=== PATIENT | female | born 1940 | race Caucasian/White ===

== ENCOUNTER → 2017-09-29 | Outpatient (CLI) | payer MEDICARE, OTHER | END | disposition home or self-care (01) | LOC: LAB SHORT 10:05 → LAB 10:05 | PROVIDERS: Nurse Practitioner Women's Health | DX: Z12.72 Encounter for screening for malignant neoplasm of vagina (principal); Z91.89 Other specified personal risk factors, not elsewhere classified | CPT/HCPCS: 87624; G0123 ==

== ENCOUNTER 2018-04-08 19:51 | Emergency (ER) | payer MEDICARE, OTHER ==
[~2018-04-08] VITALS: Ht 160 cm; Wt 68.0 kg
[2018-04-08 20:44] LABS: BASOPHILS ABSOLUTE AUTO 0.06 K/mm3 (0.00-0.23); BASOPHILS PERCENT AUTO 1 % (0-2); EOSINOPHILS ABSOLUTE AUTO 0.22 K/mm3 (0.00-0.68); EOSINOPHILS PERCENT AUTO 3 % (0-6); Hematocrit 35.1 % (33.0-51.0); Hemoglobin 11.7 g/dL (11.5-16.0); IMMATURE GRAN ABSOLUTE AUTO 0.02 K/mm3 (0.00-0.10); IMMATURE GRAN PERCENT AUTO 0 % (0-1); LYMPHOCYTES ABSOLUTE AUTO 2.28 K/mm3 (0.84-5.20); LYMPHOCYTES PERCENT AUTO 35 % (21-46); MONOCYTES ABSOLUTE AUTO 0.56 K/mm3 (0.16-1.47); MONOCYTES PERCENT AUTO 9 % (4-13); Mean Corpuscular HGB 30.4 pg (26.0-34.0); Mean Corpuscular HGB Conc 33.3 g/dL (31.5-36.5); Mean Corpuscular Volume 91 fL (80-100); Mean Platelet Volume 11.1 fL (9.1-12.4); NEUTROPHILS ABSOLUTE AUTO 3.37 K/mm3 (1.96-9.15); NEUTROPHILS PERCENT AUTO 52 % (41-73); Platelet Count 174 K/mm3 (150-400); RDW Coefficient Variation 12.9 % (11.7-14.2); RDW Standard Deviation 42.8 fL (35.1-46.3); Red Blood Cell Count 3.85 M/mm3 (3.80-5.20); White Blood Cell Count 6.51 K/mm3 (4.00-11.30)
[2018-04-08] MEDS ORDERED: OXYB5 PO (20:58)
[2018-04-08] MEDS ORDERED: Simvastatin20 MG PO (20:58)
[2018-04-08] MEDS ORDERED: LEVSOD50 PO (20:58)
[2018-04-08] MEDS ORDERED: LOSA25 PO (20:59)
[2018-04-08] MEDS ORDERED: METO50ER PO (20:59)
[2018-04-08] MEDS ORDERED: Metformin HCl500 MG PO (20:59)
[2018-04-08] MEDS ORDERED: ALEN70 PO (20:59)
[2018-04-08 21:08] LABS: Alanine Aminotransfer (ALT/SGP 19 U/L (12-78); Albumin, Blood 3.6 g/dL (3.4-5.0); Albumin/Globulin Ratio 1.1 (0.8-1.8); Alk Phos 64 U/L (50-136); Anion Gap 8 mmol/L (6-16); Aspartate Aminotrans (AST/SGOT 21 U/L (12-37); Bilirubin, Total 0.6 mg/dL (0.1-1.0); Blood Urea Nitrogen 17 mg/dL (8-24); Bun/Creatinine Ratio 20.8 (12.0-20.0); CO2, Blood 25 mmol/L (21-32); Calcium, Blood 8.8 mg/dL (8.5-10.1); Chloride, Blood 100 mmol/L (98-108); Creatinine, Blood 0.82 mg/dL (0.40-1.00); Globulin, Blood 3.2 g/dL (2.2-4.0); Glomerular Filtration Rate >60 (60-); Glucose, Blood 90 mg/dL (70-99); Potassium, Blood 3.8 mmol/L (3.5-5.5); Sodium, Blood 133 mmol/L (136-145); Total Protein, Blood 6.8 g/dL (6.4-8.2); Troponin I <0.015 ng/mL (0.000-0.040)
[2018-04-08] MEDS ORDERED: Protonix40 MG PO (21:09)
== END 2018-04-08 21:51 | disposition home or self-care (01) ==
LOC: ER 19:51
PROVIDERS: Emergency Medicine
DX: K21.9 Gastro-esophageal reflux disease without esophagitis (principal); E11.9 Type 2 diabetes mellitus without complications; I10 Essential (primary) hypertension
CPT/HCPCS: 71046; 80053; 84484; 85025; 93005; 93010; 99285-25

== ENCOUNTER → 2018-12-06 | Outpatient (CLI) | payer MEDICARE, OTHER ==
[~2018-12-06] MED LIST: ALEN70 PO; LEVSOD50 PO; LOSA25 PO; METO50ER PO; Metformin HCl500 MG PO; OXYB5 PO; Protonix40 MG PO; Simvastatin20 MG PO
[2018-12-10 14:06] LABS: HPV 16 Negative (Negative); HPV 18 Negative (Negative); HPV OTHER HR TYPES Negative (Negative)
== END | disposition home or self-care (01) ==
LOC: LAB 18:58 → LAB SHORT 18:58
PROVIDERS: Nurse Practitioner Women's Health
DX: Z12.72 Encounter for screening for malignant neoplasm of vagina (principal); Z91.89 Other specified personal risk factors, not elsewhere classified
CPT/HCPCS: 87624; G0123

== ENCOUNTER 2020-04-13 19:13 | Emergency (ER) | payer MEDICARE, OTHER ==
[~2020-04-13] VITALS: Ht 160 cm; Wt 68.0 kg
[~2020-04-13 19:13] MED LIST changes: +ACETAMINOPHEN500 MG PO; -LEVSOD50 PO; +LEVSOD75 PO
[2020-04-13 19:55] LABS: BASOPHILS ABSOLUTE AUTO 0.06 K/mm3 (0.00-0.23); BASOPHILS PERCENT AUTO 1 % (0-2); EOSINOPHILS ABSOLUTE AUTO 0.29 K/mm3 (0.00-0.68); EOSINOPHILS PERCENT AUTO 4 % (0-6); Hematocrit 42.4 % (33.0-51.0); Hemoglobin 13.7 g/dL (11.5-16.0); IMMATURE GRAN ABSOLUTE AUTO 0.03 K/mm3 (0.00-0.10); IMMATURE GRAN PERCENT AUTO 0 % (0-1); LYMPHOCYTES PERCENT AUTO 30 % (21-46); MONOCYTES ABSOLUTE AUTO 0.45 K/mm3 (0.16-1.47); MONOCYTES PERCENT AUTO 6 % (4-13); Mean Corpuscular HGB 28.8 pg (26.0-34.0); Mean Corpuscular HGB Conc 32.3 g/dL (31.5-36.5); Mean Corpuscular Volume 89 fL (80-100); Mean Platelet Volume 11.7 fL (9.1-12.4); NEUTROPHILS ABSOLUTE AUTO 4.17 K/mm3 (1.96-9.15); NEUTROPHILS PERCENT AUTO 59 % (41-73); Platelet Count 180 K/mm3 (150-400); RDW Coefficient Variation 12.7 % (11.7-14.2); RDW Standard Deviation 41.9 fL (35.1-46.3); Red Blood Cell Count 4.75 M/mm3 (3.80-5.20)
[2020-04-13 20:18] LABS: Alanine Aminotransfer (ALT/SGP 18 U/L (12-78); Albumin, Blood 3.8 g/dL (3.4-5.0); Alk Phos 99 U/L (50-136); Anion Gap 5 mmol/L (6-16); Aspartate Aminotrans (AST/SGOT 13 U/L (12-37); Bilirubin, Total 0.7 mg/dL (0.1-1.0); Blood Urea Nitrogen 18 mg/dL (8-24); Bun/Creatinine Ratio 30.4 (12.0-20.0); CO2, Blood 26 mmol/L (21-32); Calcium, Blood 9.3 mg/dL (8.5-10.1); Chloride, Blood 102 mmol/L (98-108); Creatinine, Blood 0.59 mg/dL (0.40-1.00); Globulin, Blood 3.8 g/dL (2.2-4.0); Glomerular Filtration Rate >60 (60-); Glucose, Blood 322 mg/dL (70-99); Potassium, Blood 3.8 mmol/L (3.5-5.5); Sodium, Blood 133 mmol/L (136-145); Total Protein, Blood 7.6 g/dL (6.4-8.2); Troponin I <0.015 ng/mL (0.000-0.040)
[2020-04-13 21:19] LABS: Source, Urine Clean Catch
[2020-04-13 21:22] LABS: Appearance, Urine Clear (Clear); Bilirubin, Urine Neg (Neg); Blood, Urine Neg (Neg); Color, Urine Yellow (P-Yellow); Glucose Qualitative, Urine 4+ (Neg); Ketones, Urine Neg (Neg); Leukocyte Esterase, Urine 2+ (Neg); Nitrite, Urine Neg (Neg); Protein, Urine Neg (Neg); Urobilinogen, Urine NORM (Normal)
[2020-04-13 21:28] LABS: Bacteria Few /hpf; Squamous Epithelial Cells Few /hpf (Few)
[2020-04-13] MEDS ORDERED: MECL12.5 PO (23:17)
== END 2020-04-13 23:49 | disposition home or self-care (01) ==
LOC: ER 19:13
PROVIDERS: Physician Assistant
DX: R42 Dizziness and giddiness (principal); I10 Essential (primary) hypertension; E11.9 Type 2 diabetes mellitus without complications; K21.9 Gastro-esophageal reflux disease without esophagitis; Z79.84 Long term (current) use of oral hypoglycemic drugs; Z79.899 Other long term (current) drug therapy
CPT/HCPCS: 36415; 80053; 81001; 84484; 85025; 87086; 93005; 93010; 99284-25

== ENCOUNTER 2022-02-03 11:11 | Day surgery (SDC) | payer MEDICARE ==
[~2022-02-03] VITALS: Ht 162.6 cm; Wt 66.6 kg
[~2022-02-03 11:11] MED LIST changes: +MECL12.5 PO
[2022-02-03] MEDS ORDERED: EUTHYROX75 MC1 (11:55)
== END 2022-02-03 14:00 | disposition home or self-care (01) ==
LOC: ORSCSDS 11:11
PROVIDERS: Internal Medicine Gastroenterology
PROC: 0DB78ZX Excision of Stomach, Pylorus, Via Natural or Artificial Opening Endoscopic, Diagnostic (ICD-10-PCS; principal; 2022-02-03 12:30)
PROC: 0D758ZZ Dilation of Esophagus, Via Natural or Artificial Opening Endoscopic (ICD-10-PCS; principal; 2022-02-03 12:30)
DX: R13.10 Dysphagia, unspecified (principal); K31.7 Polyp of stomach and duodenum; K22.5 Diverticulum of esophagus, acquired; Z79.84 Long term (current) use of oral hypoglycemic drugs; Z79.899 Other long term (current) drug therapy; E11.9 Type 2 diabetes mellitus without complications; E78.5 Hyperlipidemia, unspecified; I10 Essential (primary) hypertension; E03.9 Hypothyroidism, unspecified
CPT/HCPCS: 82947; 88305; 88342; J2704; J7120

== ENCOUNTER → 2023-02-14 | Outpatient (CLI) | payer MEDICARE ==
[~2023-02-14] MED LIST changes: +EUTHYROX75 MC1
== END | disposition home or self-care (01) ==
LOC: LAB 18:25 → LAB SHORT 18:25
DX: R30.0 Dysuria (principal)
CPT/HCPCS: 87086

== ENCOUNTER 2023-12-16 14:00 | Inpatient (IN) | payer MEDICARE ==
[~2023-12-16] VITALS: Ht 162.6 cm; Wt 70.9 kg
[~2023-12-16 14:00] MED LIST changes: -EUTHYROX75 MC1; +EUTHYROX75 MC1 PO; -LOSA25 PO; +LOSARTAN POTAS100 M1 PO; +SIMV40 PO; -Simvastatin20 MG PO
[2023-12-16 15:53] LABS: BASOPHILS ABSOLUTE AUTO 0.04 K/mm3 (0.00-0.23); BASOPHILS PERCENT AUTO 0 % (0-2); EOSINOPHILS ABSOLUTE AUTO 0.01 K/mm3 (0.00-0.68); EOSINOPHILS PERCENT AUTO 0 % (0-6); Hematocrit 38.2 % (33.0-51.0); Hemoglobin 12.7 g/dL (11.5-16.0); IMMATURE GRAN ABSOLUTE AUTO 0.08 K/mm3 (0.00-0.10); IMMATURE GRAN PERCENT AUTO 1 % (0-1); LYMPHOCYTES ABSOLUTE AUTO 0.52 K/mm3 (0.84-5.20); LYMPHOCYTES PERCENT AUTO 4 % (21-46); MONOCYTES ABSOLUTE AUTO 0.61 K/mm3 (0.16-1.47); MONOCYTES PERCENT AUTO 5 % (4-13); Mean Corpuscular HGB 29.7 pg (26.0-34.0); Mean Corpuscular HGB Conc 33.2 g/dL (31.5-36.5); Mean Corpuscular Volume 89 fL (80-100); NEUTROPHILS ABSOLUTE AUTO 11.58 K/mm3 (1.96-9.15); NEUTROPHILS PERCENT AUTO 90 % (41-73); Platelet Count 142 K/mm3 (150-400); RDW Coefficient Variation 12.8 % (11.7-14.2); RDW Standard Deviation 41.9 fL (35.1-46.3); Red Blood Cell Count 4.28 M/mm3 (3.80-5.20); White Blood Cell Count 12.84 K/mm3 (4.00-11.30)
[2023-12-16 16:03] LABS: Base Excess Venous 0.9 mmol/L; Bicarbonate Venous 24.5 mmol/L (24.0-30.0); PCO2 Venous 45.7 mmHg (38-42); pH Blood Venous 7.37 (7.34-7.37)
[2023-12-16 16:17] LABS: Albumin, Blood 3.3 g/dL (3.4-5.0); Bilirubin, Total 1.2 mg/dL (0.1-1.0); Bun/Creatinine Ratio 25.9 (12.0-20.0); Calcium, Blood 8.3 mg/dL (8.5-10.1); Creatinine, Blood 0.62 mg/dL (0.40-1.00); Globulin, Blood 3.3 g/dL (2.2-4.0); Potassium, Blood 4.1 mmol/L (3.5-5.5); Total Protein, Blood 6.6 g/dL (6.4-8.2)
[2023-12-16 16:32] LABS: Influenza A, PCR NEGATIVE (NEGATIVE); Influenza B, PCR NEGATIVE (NEGATIVE); Resp Syncytial Virus, PCR NEGATIVE (NEGATIVE); SARS-Cov-2 (COVID-19) PCR, MMC NEGATIVE (NEGATIVE)
[2023-12-16] MEDS ORDERED: Magnesium Sulf 2 GM/Water 50ML 50 ML IV ONE (16:45)
[2023-12-16] MEDS ORDERED: Ondansetron HCl 2 MG / ML 2ML Vial IV PRN (17:35)
[2023-12-16] MEDS ORDERED: FLU VACC TS2024-25(6MOS UP)/PF 45 MCG/0.5 ML SYRINGE IM SCH (17:35)
[2023-12-16] MEDS ORDERED: FentaNYL Citrate 50 MCG/ML 2 ML Injection IV PRN (17:35)
[2023-12-16] MEDS ORDERED: NS 1,000 ML IV SCH (17:35)
[2023-12-16] MEDS ORDERED: MetroNIDAZOLE 500MG/NS 100 ml 100 ML IV ONE (17:45)
[2023-12-16] MEDS ORDERED: CefTRIAXone Sodium 1,000 MG in NS 50 ML IV ONE (17:45)
[2023-12-16] MEDS ORDERED: FentaNYL Citrate 50 MCG/ML 2 ML Injection IV ONE (17:50)
[2023-12-16] MEDS ORDERED: Ondansetron HCl 2 MG / ML 2ML Vial IV ONE (17:50)
[2023-12-16] MEDS ORDERED: Enoxaparin 40 MG/0.4 ML SYR SC SCH (18:00)
[2023-12-16 18:03] LABS: CHOL/HDL RATIO 4.6; Cholesterol 194 mg/dL (50-200); HDL Cholesterol 42 mg/dL (>39); LDL/HDL RATIO 2.4; Low Density Lipoprotein Chol 103 mg/dL (0-110); Triglycerides 247 mg/dL (30-160); Very Low Density Lipoprot Chol 49 mg/dL (6-32)
[2023-12-16] MEDS ORDERED: NS 1,000 ML IV ONE (18:06)
[2023-12-16 21:30] VITALS: BP 136/72
[2023-12-17 02:27] VITALS: BP 149/86
--- NOTE | 2023-12-17 03:33 | NUR ---
[facility]YGEN THERAPY PT ON CONTINUOUS PULSE OXIMETRY R/T NARCOTIC ANALGESICS. DESAT TO 85% RA WHILE ASLEEP AT 0000. REQUIRED 4L LFNC TO STABILIZE ABOVE 90% SPO2. WEANED TO RA AT 0230.
--- NOTE | 2023-12-17 04:17 | NUR ---
SHIFT SUMMARY A&OX4, INTERMITTENT BOUTS OF CONFUSION DURING THE NIGHT. PT COOPERATIVE, EASILY/QUICKLY REORIENTED. PAIN MANAGED WITH NPIS AND PER EMAR. NPO STATUS. IVF PER EMAR. CONTINUOUS PULSE OXIMETRY R/T NARCOTICS PER EMAR. REQUIRING INTERMITTENT LFNC WITH SLEEP D/T DESATS. PT ABLE TO REST DURING SHIFT. PT VOICED UNDERSTANDING OF PLAN OF CARE; DENIES QUESTIONS/CONCERNS AT THIS TIME.
--- NOTE | 2023-12-17 04:20 | NUR ---
OXYGEN THERAPY CONTINUED PT DESAT TO 88% SPO2 WHILE ASLEEP AT 0415. LFNC REAPPLIED AT 2LPM. ALONSO WILKINS
[2023-12-17 04:55] LABS: BASOPHILS ABSOLUTE AUTO 0.03 K/mm3 (0.00-0.23); BASOPHILS PERCENT AUTO 0 % (0-2); EOSINOPHILS ABSOLUTE AUTO 0.02 K/mm3 (0.00-0.68); EOSINOPHILS PERCENT AUTO 0 % (0-6); Hematocrit 36.4 % (33.0-51.0); Hemoglobin 12.3 g/dL (11.5-16.0); IMMATURE GRAN ABSOLUTE AUTO 0.06 K/mm3 (0.00-0.10); IMMATURE GRAN PERCENT AUTO 1 % (0-1); LYMPHOCYTES ABSOLUTE AUTO 1.27 K/mm3 (0.84-5.20); LYMPHOCYTES PERCENT AUTO 10 % (21-46); MONOCYTES ABSOLUTE AUTO 0.62 K/mm3 (0.16-1.47); MONOCYTES PERCENT AUTO 5 % (4-13); Mean Corpuscular HGB 29.9 pg (26.0-34.0); Mean Corpuscular HGB Conc 33.8 g/dL (31.5-36.5); Mean Corpuscular Volume 89 fL (80-100); Mean Platelet Volume 12.3 fL (9.1-12.4); NEUTROPHILS ABSOLUTE AUTO 10.38 K/mm3 (1.96-9.15); NEUTROPHILS PERCENT AUTO 84 % (41-73); Platelet Count 138 K/mm3 (150-400); RDW Coefficient Variation 12.9 % (11.7-14.2); RDW Standard Deviation 41.9 fL (35.1-46.3); Red Blood Cell Count 4.11 M/mm3 (3.80-5.20); White Blood Cell Count 12.38 K/mm3 (4.00-11.30)
[2023-12-17 05:09] LABS: Albumin, Blood 2.8 g/dL (3.4-5.0); Albumin/Globulin Ratio 0.9 (0.8-1.8); Bun/Creatinine Ratio 21.5 (12.0-20.0); Calcium, Blood 8.5 mg/dL (8.5-10.1); Creatinine, Blood 0.61 mg/dL (0.40-1.00); Globulin, Blood 3.2 g/dL (2.2-4.0); Potassium, Blood 4.2 mmol/L (3.5-5.5)
--- NOTE | 2023-12-17 06:08 | NUR ---
OXYGEN THERAPY RA SINCE 529 TO CURRENT. ALONSO WELL. SPO2 94% WHILE ASLEEP ON RA.
[2023-12-17 07:15] VITALS: BP 131/60
--- NOTE | 2023-12-17 09:30 | NUR ---
DR. PATHAK ROUNDED THIS AM. DISCUSSED CONTINUED NEED FOR IV FLUIDS AND ELEVATED WHITE COUNT WITH DR. PATHAK.
--- NOTE | 2023-12-17 11:53 | NUR ---
PT'S DAUGHTER LUCIANO UPDATED REGARDING PT STATUS. PT GAVE VERBAL CONSENT FOR THIS RN TO TALK WITH HR DAUGHTER.
[2023-12-17] MEDS ORDERED: NS 1,000 ML IV SCH (11:55)
[2023-12-17] MEDS ORDERED: Benzonatate 100 MG Cap PO PRN (14:45)
[2023-12-17 15:00] VITALS: BP 131/62
[2023-12-17] MEDS ORDERED: Celexa20 MG PO (16:20)
[2023-12-17] MEDS ORDERED: HYDCHL25 PO (16:20)
[2023-12-17] MEDS ORDERED: JENTADUETO PO (16:21)
--- NOTE | 2023-12-17 18:29 | NUR ---
SHIFT SUMMARY PT ORIENTED TO SELF AND PLACE ONLY, CANNOT CONSISTENTLY RECALL CURRENT DATE OR DATE OF . CONTINUOUS PULSE OX. NC AT 2.5 LPM WHEN ON IV PAIN MEDS. COOPERATIVE WITH CARE. TO BSC X1. PT ABLE TO REST THIS AM, VISITORS IN AFTERNOON. NPO STATUS. USES ORAL SPONGE SWABS AND GLYCERIN SWABS NEEDED. C/O COUGH INTERMITTENTLY, ASSIGNED RN OBTAINED ORDER FOR BENZONATATE. PT RESTING AT THIS TIME.
[2023-12-17 19:19] VITALS: BP 150/66
--- NOTE | 2023-12-17 20:07 | NUR ---
SHIFT SUMMARY PT REMAINS NPO AND ON IV FLUIDS FOR PANCRATITIS MANAGEMENT. PT'S PAIN HAS BEEN MANAGED WITH FENTALY AND NAUSEA MANAGED WITH ZOFRAN. PT HAS BEEN ALERT/ORIENTED X2 THIS SHIFT, BED ALARM IN PLACE FOR SAFETY. PT IS A 1 ASSIST WHEN OOB. PT PLACED ON 2L O2 INTERMITTENTLY T/O THE DAY TO KEEP O2 SATURATIONS GREATER THAN 90%. INCENTIVE SPIROMETER GIVEN AND EDUCATION PROVIDED. BEDSIDE REPORT GIVENT TO SARAH LAWS.
[2023-12-17] MEDS ORDERED: Memantine HCL 5 MG Tab PO SCH (21:00)
[2023-12-17] MEDS ORDERED: Atorvastatin 10 MG Tab PO SCH (21:00)
[2023-12-18 03:25] VITALS: BP 174/80
--- NOTE | 2023-12-18 04:19 | NUR ---
SHIFT SUMMARY PT IS PLEASANTLY CONFUSED, DOES TRY TO GET OOB ON HER OWN AND FORGETS TO CALL. IV FLUIDS GIVEN ORDERED. PT VOIDING APPROPRIATELY, SBA TO BSC. 02 SATS >92% ON 2LNC. PAIN MANAGED W/ IV PAIN MEDS. BED ALARM ON, CALL LIGHT IN REACH.
[2023-12-18] MEDS ORDERED: Levothyroxine Sodium 0.075 MG Tab PO SCH (06:00)
[2023-12-18 06:49] LABS: BASOPHILS ABSOLUTE AUTO 0.03 K/mm3 (0.00-0.23); BASOPHILS PERCENT AUTO 0 % (0-2); EOSINOPHILS PERCENT AUTO 1 % (0-6); Hematocrit 33.3 % (33.0-51.0); Hemoglobin 11.1 g/dL (11.5-16.0); IMMATURE GRAN ABSOLUTE AUTO 0.05 K/mm3 (0.00-0.10); IMMATURE GRAN PERCENT AUTO 1 % (0-1); LYMPHOCYTES ABSOLUTE AUTO 1.45 K/mm3 (0.84-5.20); LYMPHOCYTES PERCENT AUTO 13 % (21-46); MONOCYTES ABSOLUTE AUTO 0.57 K/mm3 (0.16-1.47); MONOCYTES PERCENT AUTO 5 % (4-13); Mean Corpuscular HGB 29.9 pg (26.0-34.0); Mean Corpuscular HGB Conc 33.3 g/dL (31.5-36.5); Mean Corpuscular Volume 90 fL (80-100); Mean Platelet Volume 11.9 fL (9.1-12.4); NEUTROPHILS ABSOLUTE AUTO 8.67 K/mm3 (1.96-9.15); NEUTROPHILS PERCENT AUTO 80 % (41-73); Platelet Count 129 K/mm3 (150-400); RDW Coefficient Variation 13.1 % (11.7-14.2); RDW Standard Deviation 42.9 fL (35.1-46.3); Red Blood Cell Count 3.71 M/mm3 (3.80-5.20); White Blood Cell Count 10.87 K/mm3 (4.00-11.30)
[2023-12-18 07:01] VITALS: BP 161/83
[2023-12-18 07:07] LABS: Bun/Creatinine Ratio 14.4 (12.0-20.0); Calcium, Blood 8.7 mg/dL (8.5-10.1); Creatinine, Blood 0.56 mg/dL (0.40-1.00); Potassium, Blood 3.8 mmol/L (3.5-5.5)
[2023-12-18] MEDS ORDERED: oxyBUTYnin chloride 5 MG TAB PO SCH (09:00)
[2023-12-18] MEDS ORDERED: Metoprolol Succinate 50 MG TABCR PO SCH (09:00)
[2023-12-18] MEDS ORDERED: Polyethylene Glycol 3350 17 gm PO PRN (11:50)
[2023-12-18] MEDS ORDERED: Docusate Sodium/Senna 1 Tab PO PRN (11:50)
[2023-12-18 14:11] VITALS: BP 144/75
[2023-12-18] MEDS ORDERED: Insulin Human Lispro 100 Units/ML 3ML Syringe SC SCH (18:11)
--- NOTE | 2023-12-18 18:43 | NUR ---
End of shift note. Pt has rested for much of the day. Pt is A&Ox2, some noted confusion and frustration. Pt refused most of her AM medications. Staff was able to encourage Pt to take home BP meds but that was all she was willing to take. Pt has been cooperative with all other cares. Pt has tolerated clears, increased to full liquids this evening. Pt has remained on room air all shift. Family was updated this afternoon. Pt is able to make needs known, call light is within reach.
[2023-12-18] MEDS ORDERED: Pantoprazole Sodium 40 MG Injection IV SCH (19:00)
[2023-12-18 19:14] VITALS: BP 147/73
[2023-12-19] VITALS (9 sets, daily range): BP systolic 157–179; BP diastolic 66–88
--- NOTE | 2023-12-19 03:58 | NUR ---
SHIFT SUMMARY PT RESTED MOST OF SHIFT. MEDICATED FOR PAIN W/ IV PAIN MEDS. VSS. CONT BIOX ON, O2 SATS >92% ON RA. SBA TO BSC. CALLING INTERMITTENTLY, BED ALARM ON. TELE IN PLACE, NO CARDIAC EVENTS THIS SHIFT.
[2023-12-19 05:15] LABS: BASOPHILS ABSOLUTE AUTO 0.03 K/mm3 (0.00-0.23); BASOPHILS PERCENT AUTO 0 % (0-2); EOSINOPHILS ABSOLUTE AUTO 0.19 K/mm3 (0.00-0.68); EOSINOPHILS PERCENT AUTO 2 % (0-6); Hematocrit 32.4 % (33.0-51.0); Hemoglobin 10.7 g/dL (11.5-16.0); IMMATURE GRAN ABSOLUTE AUTO 0.06 K/mm3 (0.00-0.10); IMMATURE GRAN PERCENT AUTO 1 % (0-1); LYMPHOCYTES ABSOLUTE AUTO 1.42 K/mm3 (0.84-5.20); LYMPHOCYTES PERCENT AUTO 16 % (21-46); MONOCYTES ABSOLUTE AUTO 0.58 K/mm3 (0.16-1.47); MONOCYTES PERCENT AUTO 7 % (4-13); Mean Corpuscular HGB 29.8 pg (26.0-34.0); Mean Corpuscular Volume 90 fL (80-100); Mean Platelet Volume 12.1 fL (9.1-12.4); NEUTROPHILS ABSOLUTE AUTO 6.53 K/mm3 (1.96-9.15); NEUTROPHILS PERCENT AUTO 74 % (41-73); Platelet Count 132 K/mm3 (150-400); RDW Standard Deviation 42.9 fL (35.1-46.3); Red Blood Cell Count 3.59 M/mm3 (3.80-5.20); White Blood Cell Count 8.81 K/mm3 (4.00-11.30)
[2023-12-19 06:09] LABS: Albumin, Blood 2.5 g/dL (3.4-5.0); Albumin/Globulin Ratio 0.7 (0.8-1.8); Bilirubin, Total 1.2 mg/dL (0.1-1.0); Bun/Creatinine Ratio 8.6 (12.0-20.0); Calcium, Blood 8.5 mg/dL (8.5-10.1); Creatinine, Blood 0.58 mg/dL (0.40-1.00); Globulin, Blood 3.4 g/dL (2.2-4.0); Potassium, Blood 3.6 mmol/L (3.5-5.5); Total Protein, Blood 5.9 g/dL (6.4-8.2)
[2023-12-19] MEDS ORDERED: OxyCODONE HCL 5 MG TAB PO PRN (11:10)
[2023-12-19] MEDS ORDERED: Docusate Sodium/Senna 1 Tab PO PRN (11:15)
[2023-12-19] MEDS ORDERED: Polyethylene Glycol 3350 17 gm PO PRN (11:15)
[2023-12-19] MEDS ORDERED: Lactulose 20 GM/30 ML UDC PO SCH (12:00)
[2023-12-19] MEDS ORDERED: Magnesium Oxide 400 MG Tab PO SCH (12:00)
--- NOTE | 2023-12-19 16:01 | NUR ---
PT BP 169/[address] SAMUELS NOTIFIED OF VS AND HOME MEDS. PER MD, WILL PLACE ORDER FOR BP.
[2023-12-19] MEDS ORDERED: HydrALAZINE HCl 20 MG / ML 1ML Vial IV PRN (16:05)
[2023-12-19] MEDS ORDERED: Pantoprazole Sodium 40 MG Tab PO SCH (16:30)
[2023-12-19] MEDS ORDERED: HydroCHLOROthiazide 25 mg Tab PO SCH (17:00)
[2023-12-19] MEDS ORDERED: Losartan Potassium 50 MG Tab PO SCH (17:00)
--- NOTE | 2023-12-19 17:37 | NUR ---
SHIFT SUMMARY- NO ACUTE CHANGES THIS SHIFT. PT ASKED FOR PAIN MEDICATION AT THE BEGINNING OF THE SHIFT BUT HAS NOT REQUIRED ANY THROUGHOUT SHIFT. DIET ADVANCED TO SOFT BITE SIZE PER MD REQUEST, TOLORATED LUNCH, CURRENTLY SITTING UP EATING DINNER. NO BM THIS SHIFT. BOWEL REGIMEN IN PLACE. PT/OT WENT WELL TODAY. PT IS ALERT AND ORIENTED X2-3, UNABLE TO STATED OR CURRENT DATE, OBEYS COMMANDS. HOME BLOOD PRESSURE MEDICATIONS RESTARTED THIS AFTERNOON. R/A PRODUCTIVE COUGH.
--- NOTE | 2023-12-19 18:38 | NUR ---
RECHECK BP 174/74 HR 65. PER ROBIN LOPEZ TO GIVE IV HYDRALAZINE 2 HR AFTER LOSARTAN AND HCTZ, WILL PASS ON TO NOC SHIFT.
[2023-12-20] MEDS ORDERED: Melatonin 5 MG Tablet PO SCH (00:20)
[2023-12-20 03:40] VITALS: BP 166/69
--- NOTE | 2023-12-20 06:12 | NUR ---
SHIFT SUMMARY PT HAS RESTED OFF AND ON T/O THE NIGHT. PT VERY FORGETFUL, DOES NOT USE CALL LIGHT. PT REPORTS DIFFICULTY SLEEPING THIS SHIFT, ORDER FOR MELATONIN RECEIVED. MEDICATED FOR PAIN PRN PER EMAR. PT CONT/INCONT OF URINE. ONE BOWEL MOVEMENT THIS SHIFT AFTER RECEIVING HS LACTULOSE. PLAN OF CARE REMAINS UNCHANGED. BED IN LOWEST POSITION, CALL LIGHT WITHIN REACH.
[2023-12-20 08:21] VITALS: BP 143/73
[2023-12-20] MEDS ORDERED: MetFORMIN HCl 500 mg PO SCH (12:00)
[2023-12-20] MEDS ORDERED: AmLODIPine Besylate 5 MG Tab PO ONE (13:05)
[2023-12-20] MEDS ORDERED: ACET500 PO (13:34)
[2023-12-20] MEDS ORDERED: DOCUZEN 8.6-501 EACH PO (13:36)
[2023-12-20] MEDS ORDERED: PANT40 PO (13:36)
[2023-12-20] MEDS ORDERED: POLYETHYLENE G500 G1 PO (13:37)
[2023-12-20] MEDS ORDERED: MAGNESIUM OXID500 MG PO (13:37)
[2023-12-20] MEDS ORDERED: AMLO5 PO (13:38)
[2023-12-20 13:53] VITALS: BP 120/66
[2023-12-20 15:19] VITALS: BP 148/95
[2023-12-20 15:32] VITALS: BP 156/66
== END 2023-12-20 15:57 | disposition home health service (06) | DRG 438 ==
LOC: ER 14:00 → ERHOLD 14:01 → SURS 14:01
PROVIDERS: Emergency Medicine; Internal Medicine; Student in an Organized Health Care Education/Training Program; ADMIT Internal Medicine
DX: K85.90 Acute pancreatitis without necrosis or infection, unspecified (principal); K83.1 Obstruction of bile duct; F03.A3 Unspecified dementia, mild, with mood disturbance; I10 Essential (primary) hypertension; E03.9 Hypothyroidism, unspecified; F41.8 Other specified anxiety disorders; E78.5 Hyperlipidemia, unspecified; E11.9 Type 2 diabetes mellitus without complications; M48.00 Spinal stenosis, site unspecified; R74.01 Elevation of levels of liver transaminase levels; E83.42 Hypomagnesemia; D69.6 Thrombocytopenia, unspecified; K21.9 Gastro-esophageal reflux disease without esophagitis; K52.9 Noninfective gastroenteritis and colitis, unspecified; Z79.899 Other long term (current) drug therapy; Z79.84 Long term (current) use of oral hypoglycemic drugs; Z79.890 Hormone replacement therapy
CPT/HCPCS: 0241U; 36415; 71046; 74177; 76705; 80048; 80053; 80061; 82803; 82947; 83690; 83735; 83880; 84484; 85025; 93005; 93010; 96374-59; 97116; 97162; 97165; 97530; 97535; 99285-25; A9270; J0360; J0696; J1650; J2405; J2470; J3010; J3475; J7030; Q9967

== ENCOUNTER 2024-07-05 05:06 | Day surgery (SDC) | payer MEDICARE ==
[~2024-07-05 05:06] MED LIST changes: +ACET500 PO; +AMLO5 PO; +Celexa20 MG PO; +DOCUZEN 8.6-501 EACH PO; +HYDCHL25 PO; +JENTADUETO PO; +MAGNESIUM OXID500 MG PO; +PANT40 PO; +POLYETHYLENE G500 G1 PO
[2024-07-05] MEDS ORDERED: Lactated Ringer's 1,000 ML IV ONE (07:39)
== END 2024-07-05 13:26 | disposition home or self-care (01) ==
LOC: ORSCSDS 05:06
DX: R13.10 Dysphagia, unspecified (principal); Z53.9 Procedure and treatment not carried out, unspecified reason
CPT/HCPCS: J7120

== ENCOUNTER 2024-11-08 08:07 | Day surgery (SDC) | payer MEDICARE ==
[~2024-11-08] VITALS: Ht 160 cm; Wt 60.4 kg
[2024-11-08] MEDS ORDERED: ZOCOR20 MG (08:39)
--- NOTE | 2024-11-08 09:32 | NUR ---
11/08/24 0932 Cat [address] S [id number] DR. DUVALL & ANESTHESIOLOGIST NOTIFIED OF CBD OF 369 & DRINKING WATER UNKNOWN AMOUNT AT 0700. NO ORDERS GIVEN.
[2024-11-08 10:23] VITALS: BP 127/86
== END 2024-11-08 10:24 | disposition home or self-care (01) ==
LOC: ORSCSDS 08:07
PROVIDERS: Internal Medicine Gastroenterology
PROC: 0DJ08ZZ Inspection of Upper Intestinal Tract, Via Natural or Artificial Opening Endoscopic (ICD-10-PCS; principal; 2024-11-08 09:30)
DX: R13.10 Dysphagia, unspecified (principal); E11.9 Type 2 diabetes mellitus without complications; I10 Essential (primary) hypertension; I47.10 Supraventricular tachycardia, unspecified; K21.9 Gastro-esophageal reflux disease without esophagitis; E03.9 Hypothyroidism, unspecified; F03.90 Unspecified dementia, unspecified severity, without behavioral disturbance, psychotic disturbance, mood disturbance, and anxiety; Z79.899 Other long term (current) drug therapy
CPT/HCPCS: 82947; C1769; J2704; J7120

== ENCOUNTER 2024-11-14 12:06 | Emergency (ER) | payer MEDICARE ==
[~2024-11-14] VITALS: Ht 160 cm; Wt 59.0 kg
[~2024-11-14 12:06] MED LIST changes: +ZOCOR20 MG
[2024-11-14 13:18] LABS: BASOPHILS ABSOLUTE AUTO 0.06 K/mm3 (0.00-0.23); BASOPHILS PERCENT AUTO 1 % (0-2); EOSINOPHILS ABSOLUTE AUTO 0.25 K/mm3 (0.00-0.68); EOSINOPHILS PERCENT AUTO 4 % (0-6); Hematocrit 36.8 % (33.0-51.0); Hemoglobin 12.5 g/dL (11.5-16.0); IMMATURE GRAN ABSOLUTE AUTO 0.09 K/mm3 (0.00-0.10); IMMATURE GRAN PERCENT AUTO 2 % (0-1); LYMPHOCYTES ABSOLUTE AUTO 2.21 K/mm3 (0.84-5.20); LYMPHOCYTES PERCENT AUTO 38 % (21-46); MONOCYTES ABSOLUTE AUTO 0.49 K/mm3 (0.16-1.47); MONOCYTES PERCENT AUTO 9 % (4-13); Mean Corpuscular HGB Conc 34.0 g/dL (31.5-36.5); Mean Corpuscular Volume 87 fL (80-100); NEUTROPHILS ABSOLUTE AUTO 2.68 K/mm3 (1.96-9.15); NEUTROPHILS PERCENT AUTO 46 % (41-73); NRBC ABSOLUTE 0.00 K/mm3 (0.00-0.02); NRBC Auto 0.0 /100 WBC (0.0-0.2); Platelet Count 236 K/mm3 (150-400); RDW Coefficient Variation 12.7 % (11.7-14.2); RDW Standard Deviation 40.2 fL (35.1-46.3)
[2024-11-14 13:57] LABS: Alanine Aminotransfer (ALT/SGP 25.0 U/L (12-78); Albumin, Blood 3.1 g/dL (3.4-5.0); Albumin/Globulin Ratio 0.7 (0.8-1.8); Anion Gap 11.0 mmol/L (3-11); Aspartate Aminotrans (AST/SGOT 28.0 U/L (12-37); Bilirubin, Total 0.8 mg/dL (0.1-1.0); Blood Urea Nitrogen 16.0 mg/dL (8-24); CO2, Blood 25.0 mmol/L (21-32); Calcium, Blood 9.2 mg/dL (8.5-10.1); Chloride, Blood 99.0 mmol/L (98-108); Creatinine, Blood 0.57 mg/dL (0.40-1.00); Globulin, Blood 4.3 g/dL (2.2-4.0); Glucose, Blood 311.0 mg/dL (70-99); Magnesium, Blood 1.6 mg/dL (1.6-2.4); Phosphorus, Blood 2.9 mg/dL (2.5-4.9); Potassium, Blood 4.6 mmol/L (3.5-5.5); Sodium, Blood 130.0 mmol/L (136-145); Total Protein, Blood 7.4 g/dL (6.4-8.2)
[2024-11-14] MEDS ORDERED: NS 1,000 ML IV SCH (14:25)
[2024-11-14 15:22] LABS: Source, Urine Clean Catch
[2024-11-14 15:24] LABS: Bilirubin, Urine Neg (Neg); Color, Urine Yellow (P-Yellow); Glucose Qualitative, Urine 4+ (Neg); Ketones, Urine 2+ (Neg); Leukocyte Esterase, Urine 3+ (Neg); Protein, Urine 1+ (Neg); Specific Gravity, Urine 1.015 (1.003-1.022); Urobilinogen, Urine NORM (Normal)
[2024-11-14 15:31] LABS: Red Blood Cells, Urine 0-2 /hpf (0-2); Yeast/Fungi Urine Few /hpf
[2024-11-14 17:45] VITALS: BP 157/94
[2024-11-14] MEDS ORDERED: Diflucan100 MG PO (18:00)
[2024-11-14] MEDS ORDERED: CEPH500 PO (18:00)
== END 2024-11-14 18:23 | disposition home or self-care (01) ==
LOC: ER 12:06
PROVIDERS: Physician Assistant
DX: N39.0 Urinary tract infection, site not specified (principal); N76.0 Acute vaginitis; I10 Essential (primary) hypertension; E11.9 Type 2 diabetes mellitus without complications; Z79.899 Other long term (current) drug therapy; Z79.2 Long term (current) use of antibiotics
CPT/HCPCS: 74177; 80053; 81001; 83690; 83735; 84100; 85025; 87077; 87086; 87186; 93005; 93010; 96360-59; 99284-25; J7030; Q9967